=== PATIENT | male | born 1950 | race American Indian/Alaskan Native ===

== ENCOUNTER 2018-04-30 10:16 | Emergency (ER) | payer OTHER ==
[2018-04-30 10:35] VITALS: BP 132/78; PULSE 83; TEMP 97.9; BMI 28.7
[2018-04-30] MEDS ORDERED: IBUPROFEN 600 MG TABLET (FP) PO ONE ×2 (12:12→12:13)
--- NOTE | 2018-04-30 12:22 | PDOC ---
History of Present Illness - General Chief Complaint: Pain, Acute Stated Complaint: LEFT WRIST PAIN Time Seen by Provider: 04/30/18 11:49 History Source: Patient Exam Limitations: No Limitations - History of Present Illness Initial Comments: 04/30/18 12:14 Patient here with complaints of left wrist pain that is progressively worsened over the past 2 weeks. 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 Denies history of carpal tunnel or any tendinitis issues, has taken no medications for relief of same. Severity: reports: moderate Pain Location: reports: upper extremity (left wrist - non dominant ) Modifying Factors: improves with: None Associated Symptoms (Fall): denies symptoms Past History - Travel Traveled outside of the country in the last 30 days: No Close contact w/someone who was outside of country & ill: No - Past Medical History Allergies/Adverse Reactions: Allergies Allergy/AdvReac Type Severity Reaction Status Date / Time No Known Allergies Allergy Verified 01/05/13 16:16 Home Medications: Ambulatory Orders Nebivolol HCl [Bystolic] 2.5 mg PO DAILY 01/05/13 Naproxen [Naprosyn -] 500 mg PO BID #30 tablet 04/30/18 COPD: No Diabetes: Yes HTN: Yes Hypercholesterolemia: Yes - Surgical History Cholecystectomy: No - Immunization History Immunization Up to Date: No - Suicide/Smoking/Psychosocial Hx Smoking History: Never smoked Have you smoked in the past 12 months: No Information on smoking cessation initiated: No Hx Alcohol Use: No Drug/Substance Use Hx: No Review of Systems - Review of Systems Able to Perform ROS?: Yes Is the patient limited [place] proficient: Yes Constitutional: Yes: Symptoms Reported, See HPI. No: Fever, Malaise HEENTM: No: Symptoms Reported Musculoskeletal: Yes: Symptoms Reported, Joint Pain, Joint Swelling (left twrist ) Integumentary: Yes: Symptoms Reported, See HPI, Erythema Neurological: Yes: Symptoms reported, See HPI, Numbness (some sensory changes ) . No: Paresthesia All Other Systems: Reviewed and Negative *Physical Exam - Vital Signs Last Vital Signs Temp Pulse Resp BP Pulse Ox 97.9 F 83 16 132/78 97 04/30/18 10:33 04/30/18 10:33 04/30/18 10:33 04/30/18 10:33 04/30/18 10:33 - Physical Exam General Appearance: Yes: Nourished, Appropriately Dressed, Apparent Distress, Mild Distress HEENT: positive: VIVIENNE, Normal ENT Inspection, TMs Normal, Pharynx Normal Neck: positive: Supple. negative: Tender Respiratory/Chest: positive: Lungs Clear Musculoskeletal: positive: Decreased Range of Motion. negative: Normal Inspection, Vertebral Tenderness Extremity: positive: Tender, Erythema (with tenderness ) Integumentary: positive: Dry, Erythema (at volar aspect of left wrist /. carpal tunnel ) Neurologic: positive: system development manager II-XII NML intact, Fully Oriented, Alert, Normal Mood/ Affect, Normal Response, Motor Strength 5/5 Moderate Sedation - Procedure Monitoring Vital Signs: Procedure Monitoring Vital Signs Temperature 97.9 F 04/30/18 10:33 Pulse Rate 83 04/30/18 10:33 Respiratory Rate 16 04/30/18 10:33 Blood Pressure 132/78 04/30/18 10:33 O2 Sat by Pulse Oximetry (%) 97 04/30/18 10:33 ED Treatment Course - RADIOLOGY Radiology Studies Ordered: Category Date Time Status WRIST-LEFT [RAD] Stat Radiology 04/30/18 11:58 Completed Progress Note - Progress Note Progress Note: Couple tunnel syndrome,/tendinitis. Immobilizer placed, will use NSAIDs and have follow-up with Ortho *DC/Admit/Observation/Transfer Diagnosis at time of Disposition: Carpal tunnel syndrome of left wrist - Discharge Dispostion Disposition: HOME Condition at time of disposition: Stable Decision to Admit order: No - Referrals Referrals: ON STAFF,NOT [Primary Care Provider] - Kg Can DO [Staff Physician] - - Patient Instructions Printed Discharge Instructions: DI for Carpal Tunnel Syndrome Additional Instructions: Rest, ice to area on and off for 15 minutes 4-6 times a day Avoid heavy lifting or exercise until pain and swelling is resolved or until further directed Keep area highly elevated to reduce swelling Use splints/Uriah wrap as directed Followup with orthopedist in one to 2 days if not improving, if significantly improved may wait one week for followup with orthopedist May use ibuprofen every 6 hours as needed for pain - Post Discharge Activity Forms/Work/School Notes: Back to Work
== END 2018-04-30 13:13 | disposition home or self-care (01) ==
LOC: JERFT 10:16
PROC: 2W3DXYZ Immobilization of Left Lower Arm using Other Device (ICD-10-PCS; principal; 2018-04-30)
DX: G56.02 Carpal tunnel syndrome, left upper limb (principal); M77.8 Other enthesopathies, not elsewhere classified
CPT/HCPCS: 73110-TC-LR-FY; 99281-25